=== PATIENT | male | born 1945 | race Caucasian/White ===

== ENCOUNTER 2018-07-11 19:11 | Inpatient (IN) | payer MEDICARE, MEDICAID ==
--- NOTE | 2018-07-11 19:39 | Emergency Department Record ---
History of Present Illness - General Chief Complaint: Mental health evaluation Stated Complaint: MENTAL EVAL Time Seen by Provider: 07/11/18 19:30 Source: Patient, Police Mode of Arrival: Ambulatory Limitations: No limitations - History of Present Illness Initial Comments: The patient is here on a court ordered [place] and Cert for psych placement. He has been acting irrationally and paranoid per the police [place]. The patient denies any recent illnesses, injuries, fever, chills, trauma or pain. He presently just arrived in [place] and is homeless. He was at the [facility] and they called the police because the patient was acting irrationally. The patient again denies any recent illnesses but states he does have chronic venous stasis to his lower legs and they have not been wrapped like they normally are due to his recent homelessness. MD Complaint: Other Onset/Timin -: Days(s) - Related Data Allergies Allergy/AdvReac Type Severity Reaction Status Date / Time No Known Drug Allergies Allergy Verified 07/11/18 19:25 Review of Systems Constitutional: Denies: Chills, Fever Eyes: Denies: Eye discharge ENT: Denies: Congestion Respiratory: Denies: Cough, Dyspnea Cardiovascular: Denies: Arrhythmia Endocrine: Denies: Fatigue Gastrointestinal: Denies: Abdominal pain Genitourinary: Denies: Discharge Musculoskeletal: Denies: Arthralgia Skin: Denies: Bruising Physical Exam - General General Appearance: Alert, Oriented x3, Cooperative, No acute distress - Head Head exam: Atraumatic, Normocephalic, Normal inspection - Eye Eye exam: Normal appearance, PERRL - Neck Neck exam: Normal inspection, Full ROM. negative: Tenderness - Respiratory Respiratory exam: Normal lung sounds bilaterally. negative: Respiratory distress - Cardiovascular Cardiovascular Exam: Regular rate, Normal rhythm, Normal heart sounds - GI/Abdominal GI/Abdominal exam: Soft, Normal bowel sounds. negative: Tenderness - Extremities Extremities exam: Full ROM, Normal capillary refill. negative: Normal inspection (There are chronic venous changes to the bilateral lower legs. There are is diffuse bilateral erythema and tenderness with weeping wounds that are most likely worse than normal.), Tenderness - Back Back exam: Reports: Normal inspection - Neurological Neurological exam: Alert, Normal gait. negative: Abnormal gait, Motor sensory deficit - Psychiatric Psychiatric exam: Manic. negative: Anxious, Flat affect Course - Reevaluation(s) Reevaluation #1: I did discuss the issues with staff and also the admitting GEODETIC ENGINEER Reena. Due to the patient's legs appearing acute worse and weeping we will admit the patient for IV abx's and wound care. We will obtain the UA as an inpatient and have social security benefits interviewer proceed with his placement on Friday. 07/11/18 22:07 Medical Decision Making - Lab Data Result diagrams: 07/11/18 19:45 07/11/18 19:45 Disposition Disposition: Admit Clinical Impression: Cellulitis Qualifiers: Site of cellulitis: unspecified site Qualified Code(s): L03.90 - Cellulitis, unspecified Disposition: Still a Patient at [facility] Decision to Admit: Admit from ER Decision to Admit Date: 07/11/18 Decision to Admit Time: 22:18 Accepting Physician: Tamiko Time Discussed w/Accepting Physician: 22:18 Condition: (2) Stable Forms: Patient Portal Access Time of Disposition: 22:18 Quality - Quality Measures Quality Measures: N/A - Blood Pressure Screening View Details: Yes Does Patient Have Any of the Following: No Blood Pressure Classification: Pre-Hypertensive BP Reading Systolic Measurement: 164 Diastolic Measurement: 82 Screening for High Blood Pressure: < Pre-Hypertensive BP, F/U Documented > [ G8950] Pre-Hypertensive Follow-up Interventions: Referral to alternative/primary care provider.
[2018-07-11 19:54] LABS: HEMATOCRIT 33.1 % (42.0-52.0); HEMOGLOBIN 10.3 gm/dl (14.0-18.0); MEAN CELL VOLUME 94.8 fl (81-97); MEAN CORPUSCULAR HEMOGLOBIN 29.5 pg (27-33); MEAN CORPUSCULAR HGB CONC 31.1 g/dl (32-36); MEAN PLATELET VOLUME 8.3 fl (7.4-10.4); PLATELET COUNT 480 K/uL (130-400); RED BLOOD COUNT 3.49 M/uL (4.40-5.70); RED CELL DISTRIBUTION WIDTH 15.1 % (11.5-14.5); WHITE BLOOD COUNT W/O DIFF 6.5 K/uL (4.2-12.2)
[2018-07-11 20:06] LABS: BLOOD UREA NITROGEN 20 mg/dL (8-23); CREATININE 1.1 mg/dL (0.7-1.2); EST GLOMERULAR FILTRATION RATE > 60 mL/min; TOTAL PROTEIN 7.2 g/dL (6.6-8.7)
[2018-07-11 20:07] LABS: PARTIAL THROMBOPLASTIN TIME 26.9 SECONDS (24.5-39.1); PROTHROMBIN TIME (PATIENT) 10.3 SECONDS (9.5-12.1)
[2018-07-11 20:08] LABS: GLUCOSE,RANDOM 104 mg/dL (74-109)
[2018-07-11 20:11] LABS: ALBUMIN 3.6 g/dL (4.0-5.0); ALKALINE PHOSPHATASE 113 U/L (40-129); ALT/SGPT 12 U/L (<41); AST/SGOT 18 U/L (10.0-50.0)
[2018-07-11 20:22] LABS: THYROID STIMULATING HORMONE 11.04 uIU/mL (0.270-4.20)
[2018-07-11] MEDS ORDERED: CEFTRIAXONE 1GM/50ML BAG 1 GM/50 ML BAG IVPB ONE (22:08)
[2018-07-11] MEDS ORDERED: ACETAMINOPHEN 325 MG TAB PO PRN (23:22)
[2018-07-12 01:28] LABS: URINE APPEARANCE CLEAR; URINE BILIRUBIN NEGATIVE (NEGATIVE); URINE BLOOD NEGATIVE (NEGATIVE); URINE COLOR YELLOW; URINE GLUCOSE (UA) NEGATIVE (NEGATIVE); URINE KETONE NEGATIVE (NEGATIVE); URINE LEUKOCYTE ESTERASE NEGATIVE (NEGATIVE); URINE NITRITE NEGATIVE (NEGATIVE); URINE PROTEIN NEGATIVE (NEGATIVE); URINE UROBILINOGEN 0.2 E.U./dL (0.20 - 1.00)
[2018-07-12 01:31] LABS: AMPHETAMINE SCREEN URINE NOT DETECTED; BARBITURATE SCREEN URINE NOT DETECTED; BENZODIAZEPINE SCREEN URINE NOT DETECTED; COCAINE SCREEN URINE NOT DETECTED; METHADONE SCREEN URINE NOT DETECTED; METHAMPHETAMINE SCREEN NOT DETECTED; OPIATE SCREEN URINE NOT DETECTED; OXYCODONE SCREEN URINE NOT DETECTED; PHENCYCLIDINE SCREEN URINE NOT DETECTED; PROPOXYPHENE SCREEN URINE NOT DETECTED; THC SCREEN URINE NOT DETECTED; TRICYCLIC ANTIDEPRESSANT SCRN NOT DETECTED
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
[2018-07-12] MEDS ORDERED: DIAZEPAM (VALIUM) 5MG/ML **10ML VIAL IM ONE (13:31)
[2018-07-12] MEDS ORDERED: OLANZAPINE 10 MG VIAL IM ONE (13:35)
[2018-07-12] MEDS ORDERED: CEFTRIAXONE 1GM/50ML BAG 1 GM/50 ML BAG IVPB SCH (22:00)
== END 2018-07-12 14:00 | disposition short-term general hospital (02) | DRG 603 ==
LOC: ER 19:11 → MEDSURG 23:19
PROVIDERS: ADMIT Internal Medicine; ATTEND Internal Medicine
DX: L03.116 Cellulitis of left lower limb (principal); I87.8 Other specified disorders of veins; I10 Essential (primary) hypertension; F22 Delusional disorders; R41.0 Disorientation, unspecified
CPT/HCPCS: 85730; 85610; 80053; 81003; 84443; 80305; 85027; G0480; J0696; 80320; 96374; 99223; 99285